=== PATIENT | male | born 1990 | race Caucasian/White ===

== ENCOUNTER 2022-06-19 17:34 | Emergency (ER) | payer OTHER, SELFPAY ==
[2022-06-19 17:47] VITALS: BP 122/62; PULSE 94; RESP 18; TEMP 36.8; O2SAT 97
--- NOTE | 2022-06-19 19:01 | ED.GENADUL_ITS ---
Discharge Plan Disposition Patient Disposition: HOME Condition: Stable Discharge Details Clinical Impression: Viral syndrome Primary Care Provider: Unknown,Unknown ED Provider: Shyam Magana Home Meds and New Rx's Prescriptions: No Action No Known Home Meds Discharge Instructions Instructions: Viral Syndrome (ED) Additional Instructions: I do believe that you are experiencing symptoms from a viral syndrome. This very well could be lejs-zbxz-aco-mouth but you have no symptoms on your hands and feet and therefore I cannot tell you with certainty. Either way I do believe this is viral you are theoretically contagious while symptomatic. Please treat your symptoms with oyyu-ebn-obejjbg medications. Watch for new or worsening symptoms and return to the ER for any concerns. Lastly, please contact your primary care provider on Tuesday to discuss your ER visit and need for outpatient reevaluation. Medical Decision Making 31-year-old gentleman with a sore throat and general fatigue exposed to tbcs-elnk-igd-mouth disease at work over the past week presents for evaluation. Clinically he appears well, nontoxic. He is afebrile. He does have multiple shallow ulcer lesions in his mouth, airway is patent. There is no rash anywhere on his body, specifically his hands and feet. We discussed that this very well could be a presentation of tbow-bovp-ghs-mouth versus herpangina versus other viral etiology. Either way it is supportive care and time. We discussed oema-vml-zkjwxib medications for symptomatic control. No clear indication to obtain laboratory values. Patient is speaking in full sentences, airway is patent, he is afebrile, lungs are clear to auscultation with an O2 sat of 97%. Standard discharge and return precautions were provided. Patient understands, is agreeable to this plan, and has no additional questions or concerns upon discharge. This documentation was generated using myGreekation system, please disregard any oddities of phrase or misspellings. Medical Records Medical records reviewed: Yes I reviewed the patient's medical records. HPI General Mode of arrival: ambulatory . Date/Time Provider Initiated Documentation: 06/19/22 17:40 . Limitations to Documentation: no limitations . Information obtained by: patient . HPI Narrative: This is a 31-year-old gentleman, no past medical history, presenting to the ER at the request of his employer for concerns of rqfn-trvr-khj-mouth disease. Patient states that there was a recent outbreak at his workplace. He states that for a couple of days he has had a mildly sore throat and generalized fatigue. He denies any rash, fever, difficulty speaking, swallowing, managing his secretions, shortness of breath, cough, abdominal pain, nausea or vomiting. He has not taken any gloo-pdv-vrqifpl medications for his symptoms. Related Data Home Medications Medication Instructions Recorded Confirmed Unknown [No Known Home Meds] 02/02/17 02/02/17 Allergies Allergy/AdvReac Type Severity Reaction Status Date / Time No Known Allergies Allergy Unverified 02/02/17 19:12 General Stated Complaint: Sorethroat STACY: 3 Review of Systems Constitutional Constitutional: Denies fever(s), Denies headache(s) and Denies weakness ENT Ears, Nose, Mouth, and Throat: Denies headache(s), Denies neck pain and Reports sore throat Cardiovascular Cardiovascular: Denies chest pain and Denies dyspnea Respiratory Respiratory: Denies cough and Denies dyspnea Gastrointestinal Gastrointestinal: Denies abdominal pain, Denies nausea and Denies vomiting Musculoskeletal Musculoskeletal: Denies back pain, Denies neck pain, Denies numbness and Denies tingling Integumentary/Breasts Skin/Breast: Denies rash Neurologic Neurologic: Denies headache(s), Denies numbness, Denies tingling and Denies weakness PFSH All Active Problems Viral syndrome (Acute) Medical History Anxiety Substance abuse Opiates. [facility] discharged 12/10/2016. Tobacco use disorder Surgical History Arthroplasty of knee (~2008) L Family History Mother Substance abuse EtOH Mental disorder Anxiety/depression/bipolar Ulcerative colitis Father Substance abuse EtOH Back pain Sister No problems noted. Brother No problems noted. Social History Smoking/Tobacco Use Status: Never Smoking risk assessment performed?: Yes Drug use: Occasionally Substance use type: does not use Do you feel safe in your relationship?: Yes Exam Const General: cooperative, healthy appearing, comfortable and no acute distress Orientation: alert and awake [facility] Head: normal to inspection, normocephalic and atraumatic General nose exam: external nose normal Face and sinus: normal facial exam Mouth: moist mucous membranes Throat: uvula midline, uvula not displaced and other (There are multiple shallow ulcers to both the hard and soft palate. ) Eyes General: appearance normal, both eyes and all related structures Conjunctivae: conjunctivae normal Neck Neck: normal visual inspection, full ROM, no meningeal signs, trachea midline and supple Resp Effort & Inspection: normal respiratory effort and able to speak in complete sentences Auscultation: clear to auscultation bilaterally Cardio Rate: regular rate Rhythm: regular rhythm Skin General skin exam: no rashes or lesions noted Neuro General: patient alert, patient awake, moves all extremities and no focal motor deficits Cognition: normal cognition Speech: speech normal Gait: normal gait Sensory Exam: no sensory deficits noted Extrem General: normal to inspection, full ROM and capillary refill normal Psych Appearance: grossly normal Mental Status: mental status grossly normal Course Vital Signs Vital signs: Vital Signs Temperature 36.8 C 06/19/22 17:47 Pulse 94 H 06/19/22 17:47 Respiratory Rate 18 06/19/22 17:47 Blood Pressure 122/62 06/19/22 17:47 Pulse Oximetry 97 06/19/22 17:47 Temperature 36.8 C 06/19/22 17:47 Temperature Source Oral 06/19/22 17:47 Pulse 94 H 06/19/22 17:47 Respiratory Rate 18 06/19/22 17:47 Blood Pressure 122/62 06/19/22 17:47 Pulse Oximetry 97 06/19/22 17:47 Oxygen Delivery Method Room Air 06/19/22 17:47 Oxygen Flow Rate 0 06/19/22 17:47 Comment 06/19/22 17:47
== END 2022-06-19 19:15 | disposition home or self-care (01) ==
PROVIDERS: Emergency Provider Physician Assistant
DX: B34.9 Viral infection, unspecified (principal); J02.9 Acute pharyngitis, unspecified; R53.1 Weakness
CPT/HCPCS: 99282

== ENCOUNTER 2022-06-28 17:38 | Emergency (ER) | payer OTHER, SELFPAY ==
[2022-06-28 17:42] VITALS: BP 125/69; PULSE 66; RESP 16; TEMP 36.7; O2SAT 98
[2022-06-28 18:11] LABS: Bilirubin Negative (Negative); Blood Negative (Negative); Clarity Clear (Clear); Glucose Negative (Negative); Ketones Trace mg/dL (Negative); Leukocyte Esterase Trace (Negative); Nitrite Negative (Negative); Specific Gravity >= 1.030 (1.005-1.025); Urobilinogen 0.2 EU/dL (Up TO 0.2)
[2022-06-28 18:12] LABS: C & S Indicated? C&S Done As Ordered
[2022-06-28 18:38] LABS: Bacteria Negative HPF (Negative); Casts Negative LPF (Negative); Crystals Negative HPF (Negative); Epithelial Cells Negative HPF (Negative); Mucus Negative (Negative); Other Cells Negative (Negative); RBC Negative HPF (0-2); WBC >50 HPF (0-5)
--- NOTE | 2022-06-28 20:47 | W.ED.GENAD ---
Discharge Plan Disposition Patient Disposition: HOME Condition: Stable Discharge Details Clinical Impression: Cystitis Primary Care Provider: Unknown,Unknown ED Provider: Uziel Rees Home Meds and New Rx's Prescriptions: New levofloxacin 750 mg tablet 750 mg PO DAILY Qty: 6 0RF Discharge Instructions Instructions: Urinary Tract Infection in Men (ED) Additional Instructions: if not better within a week follow up with your primary care provider or express care if you are positive for an std you will be contacted if you feel more ill, have severe worsening pain or fevers return to the emergency department Medical Decision Making 31 yo male who denies chronic medical problems comes in with 2 days of burning with urination and frequency. Denies having symptoms like this in the past, denies fevers, chills, abdomen pain, discharge, n/v, back pain. HE has no cva tenderness, no abdomen tenderness. Denies any testicle swelling or pain. UA done prior to my exam consistent with uti and will treat with levofloxacin. Discussed with pt concern for possible std as well including gc/chlamydia and urine test sent for this. He states he hasn't had intercourse in over a month and always uses condoms so at this time declines empiric treatment for std. Advised to f/u with pcp and return precautions given Differential Diagnosis Differential Diagnosis: cystitis, urethritis HPI General Mode of arrival: ambulatory. Date/Time Provider Initiated Documentation: 06/28/22 17:44. Limitations to Documentation: no limitations. Information obtained by: patient. History of Present Illness 31 year old M presents to the emergency department with the chief complaint of dysuria, described as moderate, Quality is described as burning, Patient started experiencing this day(s) (2) and it has been constant. No relieving factors improve symptom(s), No exacerbating factors reported . Patient notes no other symptoms.. Patient did receive the following treatments prior to arrival, none Related Data Home Medications Medication Instructions Recorded Confirmed levofloxacin 750 mg tablet 750 mg PO DAILY #6 tabs 06/28/22 Previous Rx's Medication Instructions Recorded levofloxacin 750 mg tablet 750 mg PO DAILY #6 tabs 06/28/22 Allergies Allergy/AdvReac Type Severity Reaction Status Date / Time No Known Allergies Allergy Unverified 06/28/22 17:46 General Stated Complaint: Urinary STACY: 4 Review of Systems All systems reviewed & are unremarkable except as noted in HPI and below Constitutional Constitutional: Denies chills, Denies fever(s) and Denies weakness Cardiovascular Cardiovascular: Denies chest pain and Denies dyspnea Respiratory Respiratory: Denies cough and Denies dyspnea Gastrointestinal Gastrointestinal: Denies abdominal pain, Denies nausea and Denies vomiting Integumentary/Breasts Skin/Breast: Denies rash Neurologic Neurologic: Denies weakness PFSH All Active Problems (Updated 06/28/22 @ 20:47 by Uziel Rees MD) Viral syndrome (Acute) Cystitis (Acute) Medical History Anxiety Substance abuse Opiates. [facility] discharged 12/10/2016. Tobacco use disorder Surgical History Arthroplasty of knee (~2008) L Family History Mother Substance abuse EtOH Mental disorder Anxiety/depression/bipolar Ulcerative colitis Father Substance abuse EtOH Back pain Sister No problems noted. Brother No problems noted. Social History Smoking/Tobacco Use Status: Current every day Tobacco Type: e-cigarettes and smokeless tobacco Smoking risk assessment performed?: Yes Alcohol Intake: never Drug use: Never Substance use type: does not use Do you feel safe at home: Yes Do you feel safe in your relationship?: Yes Exam Const General: no acute distress Orientation: alert HENMT Head: normal to inspection Ears: external ears normal General nose exam: external nose normal Mouth: moist mucous membranes Eyes General: appearance normal, both eyes and all related structures Neck Neck: normal visual inspection Resp Effort & Inspection: normal respiratory effort and able to speak in complete sentences Cardio Rate: regular rate Skin General skin exam: no rashes or lesions noted Neuro General: patient alert and patient oriented x3 Extrem General: normal to inspection Psych Mental Status: mental status grossly normal Course Vital Signs Vital signs: Vital Signs Temperature 36.7 C 06/28/22 17:42 Pulse 66 06/28/22 17:42 Respiratory Rate 16 06/28/22 17:42 Blood Pressure 125/69 06/28/22 17:42 Pulse Oximetry 98 06/28/22 17:42 Temperature 36.7 C 06/28/22 17:42 Temperature Source Temporal Artery Scan 06/28/22 17:42 Pulse 66 06/28/22 17:42 Respiratory Rate 16 06/28/22 17:42 Respiratory Effort Non-Labored 06/28/22 17:44 Blood Pressure 125/69 06/28/22 17:42 Blood Pressure Position Sitting 06/28/22 17:42 Pulse Oximetry 98 06/28/22 17:42 Oxygen Delivery Method Room Air 06/28/22 17:42 Oxygen Flow Rate 0 06/28/22 17:42 Pain Level 0 06/28/22 17:42 Lab/Test Results Lab/Test Results: 06/28/22 17:50 Urine - Clean Catch Urine Culture - Pending Laboratory Tests Range/Units 06/28/22 17:50 Urine Color (Yellow) Yellow Urine Clarity (Clear) Clear Urine pH (5-8) 6.0 Ur Specific [place] (1.005-1.025) >= 1.030 H Urine Protein (Negative) mg/dL 30 H Urine Ketones (Negative) mg/dL Trace H Urine Blood (Negative) Negative Urine Nitrite (Negative) Negative Urine Bilirubin (Negative) Negative Urine Urobilinogen (Up TO 0.2) EU/dL 0.2 Ur Leukocyte Esterase (Negative) Trace H Urine RBC (0-2) HPF Negative Urine WBC (0-5) HPF >50 H Ur Epithelial Cells (Negative) HPF Negative Urine Crystals (Negative) HPF Negative Urine Bacteria (Negative) HPF Negative Urine Casts (Negative) LPF Negative Urine Mucus (Negative) Negative Urine Other (Negative) Negative Ur Culture Indicated? C&S Done As Ordered Urine Glucose (Negative) mg/dL Negative
[2022-06-28] MEDS: levoFLOXacin 500 MG, levoFLOXacin 250 MG 750 MG PO (21:05)
[2022-06-30 23:17] LABS: Chlamydia Result Positive (Negative); GC Result Negative (Negative)
--- NOTE | 2022-07-01 08:28 | W.ED.FU ---
Date of service: 07/01/22 Time of Service: 08:29 Follow Up Plan: 0829: Received positive chlamydia result from Lab. Patient is on Levofloxacin from previous visit. Call made to patient voicemail left. [phone]: Spoke with patient regarding lab results, he verbalized understanding, he is still taking the antibiotic, PLaced on care management list for PCP establishment.
--- NOTE | 2022-07-02 10:22 | PDOC.ERCMACT ---
- If Service Date Differs Date of service: 07/02/22 Time of Service: 10:22 Care Management Activity Note Bud presents in the ED for a urinary tract infection. At the request of ED provider, CM coordinates a referral to NA Fuentes, of [facility], on-call provider, to assist Bud in obtaining a follow up appointment danya and in establishing care with a PCP. He has [employer] for insurance. Of note Bud was seen in the ED on 06/28/22 but CM did not receive the request for PCP until today, 07/02/22.
--- NOTE | 2022-07-05 14:46 | NUR.NOTE ---
Nursing Note: Patient called stating he was still having symptoms and had taken the course of antibiotics. Can more be called in? Per Dr. Mary Jane Nichols the patient needs to be re-evaluated for this. He was told that he needs to be re-evaluated and could return her or go to an Express Care.
== END 2022-06-28 21:20 | disposition home or self-care (01) ==
PROVIDERS: Emergency Provider Emergency Medicine
DX: N30.90 Cystitis, unspecified without hematuria (principal); F17.290 Nicotine dependence, other tobacco product, uncomplicated
CPT/HCPCS: 87491; 87591; 99283; 81003; 81015; 87086; 99284

== ENCOUNTER 2022-11-24 18:19 | Outpatient (REF) | payer BC, SELFPAY ==
[2022-11-26 09:10] LABS: Hepatitis B Surface Ag Negative (Negative)
[2022-11-26 09:42] LABS: HIV-1/2 Ag & Ab Screen Negative (Negative)
[2022-11-26 10:07] LABS: Hepatitis C Ab w Rflx HCV PCR Negative (Negative)
[2022-11-26 10:18] LABS: Syphilis Serology (RPR) Negative (Negative)
[2022-11-26 13:49] LABS: GC Result Negative (Negative)
[2022-11-26 16:26] LABS: Chlamydia Result Positive (Negative)
== END 2022-11-24 18:20 | disposition home or self-care (01) ==
LOC: LBN 18:19
PROVIDERS: Visit Provider Physician Assistant Medical
DX: Z11.4 Encounter for screening for human immunodeficiency virus [HIV] (principal); Z11.3 Encounter for screening for infections with a predominantly sexual mode of transmission; Z11.59 Encounter for screening for other viral diseases
CPT/HCPCS: 86803; 87340; 87389; 87491; 87591; 86592